=== PATIENT | female | born 1985 | race Caucasian/White ===

== ENCOUNTER 2020-09-27 13:51 | Inpatient (IN) | payer OTHER, MEDICAID ==
[~2020-09-27] VITALS: Ht 154.9 cm; Wt 97.5 kg
[2020-09-27 14:04] VITALS: BP 93/69
[2020-09-27] MEDS ORDERED: PROZAC20 MG PO (14:06)
[2020-09-27] MEDS ORDERED: TRILEPTAL150 MG PO (14:07)
[2020-09-27] MEDS ORDERED: DESYREL150 MG PO (14:07)
[2020-09-27 14:24] LABS: ABSOLUTE BASOPHILS 0.1 thou/uL (0.0-0.2); ABSOLUTE LYMPHOCYTES 2.9 thou/uL (0.8-5.3); ABSOLUTE MONOCYTES 1.1 thou/uL (0.0-1.2); ABSOLUTE NEUTROPHILS 12.4 thou/uL (1.6-8.1); BASOPHILS 0.9 %; EOSINOPHILS 0.3 %; HEMATOCRIT 40.5 % (37.0-47.0); HEMOGLOBIN 13.4 gm/dL (12.0-15.0); LYMPHOCYTES 17.3 %; MCH 28.6 pg (26.0-34.0); MCV 86.5 fL (80.0-100.0); MONOCYTES 6.6 %; MPV 7.4 fl. (7.2-11.1); NUCLEATED RBCS 0 /100WBC; PLATELET COUNT* 292 thou/uL (150-400); POLYS 74.9 %; RBC 4.68 mil/uL (4.20-5.00); RDW-CV 14.2 % (10.5-14.5); WBC 16.6 thou/uL (4.0-11.0)
[2020-09-27 14:38] LABS: CREATININE 0.9 mg/dL (0.6-1.3); POTASSIUM 3.6 mmol/L (3.5-5.1)
[2020-09-27 14:43] LABS: ALBUMIN 3.5 g/dL (3.4-5.0); TOTAL BILIRUBIN 0.9 mg/dL (<0.1-1.0); TOTAL PROTEIN 8.2 g/dL (6.4-8.2)
[2020-09-27 17:37] VITALS: BP 105/60
[2020-09-27] MEDS ORDERED: PRAZOSIN HCL2 MG PO (19:54)
[2020-09-27 21:00] VITALS: BP 110/60
[2020-09-28 05:40] LABS: CALCIUM 8.4 mg/dL (8.5-10.1); CREATININE 0.8 mg/dL (0.6-1.3); MAGNESIUM 2.3 mg/dL (1.8-2.4); POTASSIUM 4.1 mmol/L (3.5-5.1)
[2020-09-28 05:57] LABS: HEMATOCRIT 36.1 % (37.0-47.0); HEMOGLOBIN 11.5 gm/dL (12.0-15.0); MCH 27.9 pg (26.0-34.0); MCHC 31.9 g/dL (28.0-37.0); MCV 87.3 fL (80.0-100.0); MPV 7.8 fl. (7.2-11.1); RBC 4.14 mil/uL (4.20-5.00); RDW-CV 14.3 % (10.5-14.5)
[2020-09-28 10:13] VITALS: BP 106/66
== END 2020-09-28 18:27 | disposition left against medical advice (07) | DRG 871 ==
LOC: M.ERS 13:51 → M.TBA-ER 16:42 → M.ORTHSURG 17:45
PROVIDERS: Physician Assistant; ADMIT Internal Medicine; ATTEND Internal Medicine
DX: A41.59 Other Gram-negative sepsis (principal); J15.6 Pneumonia due to other Gram-negative bacteria; J96.90 Respiratory failure, unspecified, unspecified whether with hypoxia or hypercapnia; J44.0 Chronic obstructive pulmonary disease with (acute) lower respiratory infection; Z68.41 Body mass index [BMI] 40.0-44.9, adult; J44.1 Chronic obstructive pulmonary disease with (acute) exacerbation; F17.210 Nicotine dependence, cigarettes, uncomplicated; Z79.899 Other long term (current) drug therapy; E66.01 Morbid (severe) obesity due to excess calories; F39 Unspecified mood [affective] disorder; Z20.822 Contact with and (suspected) exposure to COVID-19; Z53.29 Procedure and treatment not carried out because of patient's decision for other reasons

== ENCOUNTER 2021-07-24 22:22 | Emergency (ER) | payer OTHER, MEDICAID ==
[~2021-07-24] VITALS: Ht 152.4 cm; Wt 93.9 kg
[~2021-07-24 22:22] MED LIST: DESYREL150 MG PO; PRAZOSIN HCL2 MG PO; PROZAC20 MG PO; TRILEPTAL150 MG PO
[2021-07-24] MEDS ORDERED: PROAIR HFA8.5 GM INH (22:38)
[2021-07-25] MEDS ORDERED: PERIDEX15 ML SWISH&SPIT (00:08)
[2021-07-25] MEDS ORDERED: ACETAMINOPHEN-1 EAC2 PO (00:08)
[2021-07-25] MEDS ORDERED: IBUPROFEN 600600 M1 PO (00:08)
[2021-07-25] MEDS ORDERED: PENICILLIN V P500 MG PO (00:08)
[2021-07-25 00:18] VITALS: BP 114/72
== END 2021-07-25 00:19 | disposition home or self-care (01) ==
LOC: M.ERS 22:22
DX: K04.7 Periapical abscess without sinus (principal); J44.9 Chronic obstructive pulmonary disease, unspecified; F17.210 Nicotine dependence, cigarettes, uncomplicated; Z88.6 Allergy status to analgesic agent; Z79.899 Other long term (current) drug therapy